=== PATIENT | female | born 1945 | race Caucasian/White ===

== ENCOUNTER → 2019-04-19 15:00 | Oncology outpatient (ONC) | payer MEDICARE, OTHER, SELFPAY ==
[2018-10-06 14:00] VITALS: BP 132/77; PULSE 64; RESP 18; TEMP 36.8; O2SAT 98
--- NOTE | 2018-10-06 14:18 | P.PNONC_ITS ---
PN -Subjective Interval history: Diagnosis: Follicular lymphoma. She also has a history of CLL. Previous treatment: 1. Six cycles of Treanda and Rituxan finishing in November 2014. 2. Maintenance Rituxan finishing in November 2016. Interval history: The patient is a 72-year-old woman who I previously saw in [place]. She has a history of follicular lymphoma with mesenteric adenopathy. She also had CLL. She was treated with Treanda and Rituxan followed by maintenance Rituxan. Today, she returns for follow-up. Since her last visit, she has been feeling generally well and has no specific complaints. She did have some blood in the urine and is scheduled for a cystoscopy. She has not had any fevers or chills. Her appetite has been stable as has her weight. She has not noticed any adenopathy. She denies any new aches or pains. She has not noticed any shortness of breath or cough GI complaints. She denies any other changes in her health. Her medications include Levoxyl cytomel spironolactone omeprazole nifedipine and vitamins. - Patient Self-Reported Symptoms SR Musculoskeletal issues: Muscle weakness Home Medications and Allergies Home Medications Medication Instructions Recorded Confirmed Type cholecalciferol (vitamin D3) 10,000 unit PO 4XW 10/06/18 10/06/18 History [Vitamin D3] epigallocatechin gallate(bulk) 10/06/18 History [green tea extract] levothyroxine [Levoxyl] 100 mcg PO DAILY 10/06/18 10/06/18 History liothyronine [Cytomel] 5 mcg PO BID 10/06/18 10/06/18 History nifedipine 90 mg PO DAILY 10/06/18 10/06/18 History omega-3 fatty acids-fish oil [Fish 1 cap PO DAILY 10/06/18 10/06/18 History Oil] omeprazole 20 mg PO DAILY 10/06/18 10/06/18 History spironolactone 50 mg PO DAILY 10/06/18 10/06/18 History Exam Vital signs: Vital Signs Temp Pulse Resp BP Pulse Ox 10/06/18 14:00 98.2 F 64 18 132/77 98 Intake and Output 10/05/18 10/06/18 10/06/18 23:59 07:59 15:59 Other: Weight 78.2 kg Patient Weight 10/06/18 23:59 Weight 78.2 kg - Constitutional positive no acute distress, positive average body habitus - Routine HEENT Exam Head: Present: normocephalic, atraumatic Eye: Present: EOMI, PERRL. Absent: conjunctival icterus, scleral injection ENT: Present: mucous membranes moist, oropharynx clear - Routine Neck Exam Present: supple. Absent: lymphadenopathy, thyromegaly - Routine Chest/Breast/Axilla Exam Axillae: Absent: lymphadenopathy - Routine Respiratory Exam Present: Clear to auscultation bilaterally. Absent: rales, wheezes - Routine Cardiovascular Exam Present: RRR, S1, S2. Absent: murmur - Routine Abdominal Exam Present: soft, normoactive bowel sounds. Absent: organomegaly, mass - Routine Extremities Exam Absent: cyanosis, clubbing, edema - Routine Back/Spine Exam Back/Spine: Absent: vertebral tenderness - Routine Skin Exam Present: intact. Absent: petechiae, rash - Routine Neurological Exam Present: alert, oriented X3 - Routine Psychiatric Exam Present: normal affect, normal thought process
--- NOTE | 2018-10-07 14:03 | ONC.NAV ---
Description: [employer] Forms Activity: Left pt a message asking for some clarity re: the [employer] forms that she wants us to send in, and that she still actually needs to sign them before I can fax them. Requested a return call to advise.
--- NOTE | 2018-10-20 12:51 | ONC.NAV ---
Description: [employer] Forms Activity: Completed pt's [employer] insurance forms for cancer reimbursement, sent via [employer].
[2019-04-19 15:18] VITALS: BP 144/68; PULSE 55; RESP 18; TEMP 36.8; O2SAT 98
--- NOTE | 2019-04-19 15:35 | ONC.PN ---
PN -Subjective Interval history: Diagnosis: Follicular lymphoma. She also has a history of CLL. Previous treatment: 1. Six cycles of Treanda and Rituxan finishing in November 2014. 2. Maintenance Rituxan finishing in November 2016. Interval history: The patient is a 73-year-old woman who returns today for follow-up. She has a history of follicular lymphoma with mesenteric adenopathy. She also had CLL. She was treated with Treanda and Rituxan followed by maintenance Rituxan. Since her last visit here, she has been feeling generally well. She has no specific complaints today. She has not noticed any new aches or pains. She has not noticed any adenopathy. No fevers chills or night sweats. No shortness of breath or cough. Strength and energy level have been normal. She denies any other changes in her health. Her medications include Levoxyl cytomel spironolactone omeprazole nifedipine and vitamins. - Patient Self-Reported Symptoms SR respiratory issues: Cough SR Musculoskeletal issues: Muscle weakness SR Neuro issues: Numbness or tingling, Tremors or shaking Home Medications and Allergies Home Medications Medication Instructions Recorded Confirmed Type cholecalciferol (vitamin D3) 10,000 unit PO 4XW 10/06/18 04/19/19 History [Vitamin D3] epigallocatechin gallate(bulk) 3 ea DAILY 10/06/18 04/19/19 History [green tea extract] levothyroxine [Levoxyl] 100 mcg PO DAILY 10/06/18 04/19/19 History liothyronine [Cytomel] 5 mcg PO BID 10/06/18 04/19/19 History nifedipine 90 mg PO DAILY 10/06/18 04/19/19 History omega-3 fatty acids-fish oil [Fish 1 cap PO DAILY 10/06/18 04/19/19 History Oil] omeprazole 20 mg PO DAILY 10/06/18 04/19/19 History spironolactone 50 mg PO DAILY 10/06/18 04/19/19 History Exam Vital signs: Vital Signs Temp Pulse Resp BP Pulse Ox 04/19/19 15:18 98.3 F 55 L 18 144/68 H 98 Intake and Output 04/18/19 04/19/19 04/19/19 23:59 07:59 15:59 Other: Weight 79 kg Patient Weight 04/19/19 23:59 Weight 79 kg - Constitutional positive no acute distress, positive average body habitus - Routine HEENT Exam Head: Present: normocephalic, atraumatic Eye: Present: EOMI, PERRL. Absent: conjunctival icterus, scleral injection ENT: Present: mucous membranes moist, oropharynx clear - Routine Neck Exam Present: supple. Absent: lymphadenopathy, thyromegaly - Routine Chest/Breast/Axilla Exam Axillae: Absent: lymphadenopathy - Routine Respiratory Exam Present: Clear to auscultation bilaterally. Absent: rales, wheezes - Routine Cardiovascular Exam Present: RRR, S1, S2. Absent: murmur - Routine Abdominal Exam Present: soft, normoactive bowel sounds. Absent: tenderness, organomegaly, mass - Routine Extremities Exam Absent: cyanosis, clubbing, edema - Routine Back/Spine Exam Back/Spine: Absent: vertebral tenderness - Routine Skin Exam Present: intact. Absent: petechiae, rash - Routine Neurological Exam Present: alert, oriented X3 - Routine Psychiatric Exam Present: normal affect, normal thought process Assessment and Plan (1) Follicular lymphoma Current visit: Yes Status: Acute 73-year-old woman with a history of follicular lymphoma. She currently has no evidence of disease and is doing well. She will return to clinic in about 6 months for follow-up. She will be due for a CT scan at that time.
== END ==
PROVIDERS: PCP Nurse Practitioner Family
DX: Z08 Encounter for follow-up examination after completed treatment for malignant neoplasm (principal); Z85.72 Personal history of non-Hodgkin lymphomas; Z85.6 Personal history of leukemia
CPT/HCPCS: 99214